=== PATIENT | female | born 1940 | race Caucasian/White ===

== ENCOUNTER 2019-11-03 21:40 | Inpatient (IN) ==
[2019-11-03] MEDS ORDERED: Ondansetron 4 MG/2 ML VIAL IVP ONE (22:05)
[2019-11-03] MEDS ORDERED: 0.9 % Sodium Chloride 500 ML IVC ONE (22:17)
[2019-11-03 22:38] LABS: Basophils # 0.1 K/mcL (0.0-0.2); Basophils % 0.2 %; Hematocrit 46.2 % (35.3-44.9); Immature Granulocytes % 0.7 % (0-4); Lymphocytes # 1.1 K/mcL (0.6-4.6); Lymphocytes % 5.2 %; Mean Corpuscular HGB Conc 32.5 g/dL (31.6-35.5); Mean Corpuscular Hemoglobin 30.8 pg (28.0-33.3); Mean Corpuscular Volume 94.9 fL (83.0-100.0); Mean Platelet Volume 9.7 fL (9.4-12.4); Monocytes # 1.2 K/mcL (0.0-1.3); Monocytes % 5.4 %; Neutrophils # 19.2 K/mcL (1.6-8.9); Platelet Count 267 K/mcL (140-400); Red Blood Count 4.87 M/mcL (3.82-4.97); Segmented Neutrophils % 88.5 %; White Blood Count 21.7 K/mcL (4.3-11.1)
[2019-11-03 22:46] LABS: Prothrombin Time 10.8 Seconds (9.4-12.1)
[2019-11-03 22:48] LABS: Activated Partial Thrombo Time 28.5 Seconds (26.0-36.0)
[2019-11-03 22:51] LABS: Bilirubin,Urine Small (Negative); Blood,Urine Negative (Negative); Clarity,Urine Clear (Clear); Color,Urine Yellow (Yellow); Glucose,Urine (UA) Normal (Normal); Ketones,Urine Negative (Negative); Leukocyte Esterase,Urine Small (Negative); Nitrite,Urine Negative (Negative); PH,Urine 5.5 pH Units (5.0-8.0); Protein,Urine Negative (Neg-Trace); Specific Gravity,Urine 1.021 (1.010-1.025); Urobilinogen,Urine Normal (Normal)
[2019-11-03 22:53] LABS: Bacteria,Urine None Seen per hpf (None-Few); Hyaline Casts,Urine None Seen per lpf (None-Few); RBC,Urine 0-3 per hpf (0-3); Squamous Epithelial Cell,Urine Many per lpf (None-Few); WBC,Urine 0-3 per hpf (0-3)
[2019-11-03 23:04] LABS: Albumin/Globulin Ratio 1.3 (1.1-2.2); Bilirubin,Direct 0.1 mg/dL (0.0-0.2); Bilirubin,Indirect 0.5 mg/dL (0.0-1.0); Bilirubin,Total 0.6 mg/dL (0.3-1.0); Calcium 9.1 mg/dL (8.6-10.3); Potassium 4.2 mEq/L (3.5-5.1)
[2019-11-03 23:06] LABS: Troponin I 0.18 ng/mL (< 0.04)
[2019-11-03] MEDS ORDERED: Isovue-370 500 ML BOTTLE IVP ONE (23:08)
[2019-11-04] MEDS ORDERED: MetroNIDAZOLE 500 MG/100 ML 500 MG/100 ML BAG IVPB ONE (02:27)
[2019-11-04] MEDS ORDERED: 0.9 % Sodium Chloride 1,000 ML IVC ONE (02:27)
[2019-11-04] MEDS ORDERED: Naloxone 0.4 MG/ML INJ IVP PRN (03:19)
[2019-11-04] MEDS: *HR* OxyCODONE Oral Soln 5 MG/5 ML UD.LIQ PO PRN ×3 (04:09→20:32)
[2019-11-04 04:20] LABS: Basophils # 0.1 K/mcL (0.0-0.2); Basophils % 0.2 %; Eosinophils # 0.1 K/mcL (0.0-0.6); Eosinophils % 0.2 %; Hematocrit 41.3 % (35.3-44.9); Hemoglobin 13.6 g/dL (11.5-15.4); Immature Granulocytes % 0.7 % (0-4); Lymphocytes % 13.7 %; Mean Corpuscular HGB Conc 32.9 g/dL (31.6-35.5); Mean Corpuscular Hemoglobin 31.6 pg (28.0-33.3); Mean Corpuscular Volume 95.8 fL (83.0-100.0); Mean Platelet Volume 10.3 fL (9.4-12.4); Monocytes # 2.3 K/mcL (0.0-1.3); Monocytes % 10.2 %; Neutrophils # 16.7 K/mcL (1.6-8.9); Platelet Count 246 K/mcL (140-400); Red Blood Count 4.31 M/mcL (3.82-4.97); White Blood Count 22.3 K/mcL (4.3-11.1)
[2019-11-04] MEDS: Ringers Solution, Lactated 1,000 ML IVC SCH ×2 (04:21→13:51)
[2019-11-04 04:36] LABS: Prothrombin Time 11.5 Seconds (9.4-12.1)
[2019-11-04 04:43] LABS: Albumin 3.6 g/dL (3.5-5.7); Albumin/Globulin Ratio 1.3 (1.1-2.2); Bilirubin,Total 0.8 mg/dL (0.3-1.0); Calcium 8.4 mg/dL (8.6-10.3); Globulin 2.7 g/dL (2.4-3.5); Magnesium 1.8 mg/dL (1.6-2.6); Potassium 3.9 mEq/L (3.5-5.1); Total Protein 6.3 g/dL (6.4-8.9)
[2019-11-04] MEDS: Loratadine 10 MG TABLET PO SCH (09:13)
[2019-11-04] MEDS: Piperacillin/Tazobactam 3.375 GM in 0.9 % Sodium Chloride Mini Bag 100 ML IVPB SCH ×2 (09:13→18:53)
[2019-11-04 14:22] LABS: Hematocrit 39.2 % (35.3-44.9); Hemoglobin 12.7 g/dL (11.5-15.4)
[2019-11-04] MEDS: Ondansetron 4 MG/2 ML VIAL IVP PRN (22:59)
[2019-11-05] MEDS: *HR* OxyCODONE Oral Soln 5 MG/5 ML UD.LIQ PO PRN ×4 (00:36→20:12)
[2019-11-05] MEDS: Piperacillin/Tazobactam 3.375 GM in 0.9 % Sodium Chloride Mini Bag 100 ML IVPB SCH ×3 (00:36→15:01)
[2019-11-05] MEDS ORDERED: Metoclopramide 10 MG/2 ML VIAL IVP ONE (02:19)
[2019-11-05 04:36] LABS: Basophils # 0.1 K/mcL (0.0-0.2); Basophils % 0.3 %; Eosinophils # 0.3 K/mcL (0.0-0.6); Eosinophils % 1.2 %; Hematocrit 37.9 % (35.3-44.9); Hemoglobin 12.5 g/dL (11.5-15.4); Immature Granulocytes % 0.7 % (0-4); Lymphocytes % 16.9 %; Mean Corpuscular Hemoglobin 31.3 pg (28.0-33.3); Mean Platelet Volume 10.4 fL (9.4-12.4); Monocytes # 2.4 K/mcL (0.0-1.3); Neutrophils # 16.8 K/mcL (1.6-8.9); Platelet Count 225 K/mcL (140-400); Red Blood Count 3.99 M/mcL (3.82-4.97); Red Cell Distribution Width 15.5 % (11.5-14.5); Segmented Neutrophils % 70.9 %; White Blood Count 23.7 K/mcL (4.3-11.1)
[2019-11-05 04:48] LABS: BUN/Creatinine Ratio 12 (6-26); Blood Urea Nitrogen 12 mg/dL (8-23); Calcium 8.6 mg/dL (8.6-10.3); Carbon Dioxide 27 mEq/L (23-29); Chloride 106 mEq/L (98-107); Glucose 107 mg/dL (70-105); Osmolality,Calculated 286 (280-300); Potassium 3.8 mEq/L (3.5-5.1); Sodium 138 mEq/L (136-145); eGFR For African Americans > 60 (> 60); eGFR For Non-African Americans 53 (> 60)
[2019-11-05] MEDS: Ondansetron 4 MG/2 ML VIAL IVP PRN ×2 (08:23→20:12)
[2019-11-05] MEDS: Loratadine 10 MG TABLET PO SCH (08:23)
[2019-11-05] MEDS ORDERED: Morphine Sulfate 2 MG/ML SYRINGE IVP PRN (16:53)
[2019-11-05] MEDS ORDERED: *HR* Metoprolol 5 MG/5 ML VIAL IVP ONE (17:21)
[2019-11-05] MEDS: *HR* Promethazine 25 MG/ML VIAL IVP PRN (17:28)
[2019-11-05] MEDS ORDERED: *HR* Metoprolol 5 MG/5 ML VIAL IVP PRN (17:44)
[2019-11-05] MEDS: Ringers Solution, Lactated 1,000 ML IVC SCH (18:36)
[2019-11-06 01:00] LABS: Basophils # 0.2 K/mcL (0.0-0.2); Basophils % 0.7 %; Eosinophils # 0.5 K/mcL (0.0-0.6); Eosinophils % 2.3 %; Hematocrit 36.9 % (35.3-44.9); Immature Granulocytes % 0.6 % (0-4); Lymphocytes # 3.6 K/mcL (0.6-4.6); Lymphocytes % 16.4 %; Mean Corpuscular HGB Conc 32.5 g/dL (31.6-35.5); Mean Corpuscular Hemoglobin 31.2 pg (28.0-33.3); Mean Corpuscular Volume 95.8 fL (83.0-100.0); Mean Platelet Volume 10.4 fL (9.4-12.4); Monocytes # 2.4 K/mcL (0.0-1.3); Monocytes % 10.9 %; Platelet Count 215 K/mcL (140-400); Red Blood Count 3.85 M/mcL (3.82-4.97); Red Cell Distribution Width 15.4 % (11.5-14.5); Segmented Neutrophils % 69.1 %; White Blood Count 21.7 K/mcL (4.3-11.1)
[2019-11-06 01:22] LABS: BUN/Creatinine Ratio 9 (6-26); Blood Urea Nitrogen 9 mg/dL (8-23); Calcium 8.4 mg/dL (8.6-10.3); Carbon Dioxide 26 mEq/L (23-29); Chloride 105 mEq/L (98-107); Glucose 95 mg/dL (70-105); Osmolality,Calculated 284 (280-300); Potassium 3.8 mEq/L (3.5-5.1); Sodium 138 mEq/L (136-145); eGFR For African Americans > 60 (> 60); eGFR For Non-African Americans 53 (> 60)
[2019-11-06] MEDS: Piperacillin/Tazobactam 3.375 GM in 0.9 % Sodium Chloride Mini Bag 100 ML IVPB SCH ×3 (05:00→20:43)
[2019-11-06] MEDS: Ringers Solution, Lactated 1,000 ML IVC SCH ×2 (05:24→17:55)
[2019-11-06] MEDS ORDERED: Isovue-370 500 ML BOTTLE IVP ONE (07:53)
[2019-11-06] MEDS: Loratadine 10 MG TABLET PO SCH (09:02)
[2019-11-06] MEDS ORDERED: Famotidine 20 MG/2 ML VIAL IVP ONE (09:10)
[2019-11-06] MEDS: *HR* OxyCODONE Oral Soln 5 MG/5 ML UD.LIQ PO PRN ×4 (09:27→21:01)
[2019-11-07 03:56] LABS: Basophils # 0.2 K/mcL (0.0-0.2); Basophils % 0.9 %; Eosinophils # 0.8 K/mcL (0.0-0.6); Eosinophils % 4.8 %; Hematocrit 35.7 % (35.3-44.9); Hemoglobin 11.4 g/dL (11.5-15.4); Immature Granulocytes % 0.4 % (0-4); Lymphocytes # 3.7 K/mcL (0.6-4.6); Lymphocytes % 21.3 %; Mean Corpuscular HGB Conc 31.9 g/dL (31.6-35.5); Mean Corpuscular Hemoglobin 30.7 pg (28.0-33.3); Mean Corpuscular Volume 96.2 fL (83.0-100.0); Mean Platelet Volume 10.4 fL (9.4-12.4); Monocytes % 11.8 %; Neutrophils # 10.4 K/mcL (1.6-8.9); Platelet Count 223 K/mcL (140-400); Red Blood Count 3.71 M/mcL (3.82-4.97); Red Cell Distribution Width 15.2 % (11.5-14.5); Segmented Neutrophils % 60.8 %; White Blood Count 17.2 K/mcL (4.3-11.1)
[2019-11-07 04:17] LABS: BUN/Creatinine Ratio 9 (6-26); Blood Urea Nitrogen 9 mg/dL (8-23); Calcium 8.5 mg/dL (8.6-10.3); Carbon Dioxide 25 mEq/L (23-29); Chloride 106 mEq/L (98-107); Glucose 76 mg/dL (70-105); Magnesium 1.7 mg/dL (1.6-2.6); Osmolality,Calculated 283 (280-300); Potassium 3.7 mEq/L (3.5-5.1); Sodium 138 mEq/L (136-145); eGFR For African Americans > 60 (> 60); eGFR For Non-African Americans 55 (> 60)
[2019-11-07] MEDS: Piperacillin/Tazobactam 3.375 GM in 0.9 % Sodium Chloride Mini Bag 100 ML IVPB SCH ×3 (05:11→21:10)
[2019-11-07] MEDS: *HR* Promethazine 25 MG/ML VIAL IVP PRN (05:25)
[2019-11-07] MEDS: Loratadine 10 MG TABLET PO SCH (07:23)
[2019-11-07] MEDS: Ringers Solution, Lactated 1,000 ML IVC SCH (07:23)
[2019-11-07] MEDS: *HR* OxyCODONE Oral Soln 5 MG/5 ML UD.LIQ PO PRN ×2 (07:26→21:28)
[2019-11-07] MEDS ORDERED: *HR* Labetalol 20 MG/4 ML SYRINGE IVP PRN (07:41)
[2019-11-07] MEDS ORDERED: *HR* Metoprolol 5 MG/5 ML VIAL IVP ONE (18:42)
[2019-11-07] MEDS ORDERED: *HR* Metoprolol 5 MG/5 ML VIAL IVP PRN (19:07)
[2019-11-08 01:32] LABS: Basophils # 0.1 K/mcL (0.0-0.2); Basophils % 0.7 %; Eosinophils # 0.4 K/mcL (0.0-0.6); Eosinophils % 2.5 %; Hematocrit 40.3 % (35.3-44.9); Immature Granulocytes % 0.5 % (0-4); Lymphocytes % 17.9 %; Mean Corpuscular HGB Conc 32.5 g/dL (31.6-35.5); Mean Corpuscular Hemoglobin 30.6 pg (28.0-33.3); Mean Corpuscular Volume 94.2 fL (83.0-100.0); Mean Platelet Volume 10.1 fL (9.4-12.4); Neutrophils # 11.2 K/mcL (1.6-8.9); Nucleated Red Blood Cells 0.1 /100 WBC (0); Platelet Count 277 K/mcL (140-400); Red Blood Count 4.28 M/mcL (3.82-4.97); Red Cell Distribution Width 14.8 % (11.5-14.5); Segmented Neutrophils % 66.4 %; White Blood Count 16.9 K/mcL (4.3-11.1)
[2019-11-08 01:36] LABS: Hemoglobin 13.1 g/dL (11.5-15.4)
[2019-11-08 01:51] LABS: BUN/Creatinine Ratio 8 (6-26); Blood Urea Nitrogen 7 mg/dL (8-23); Carbon Dioxide 27 mEq/L (23-29); Chloride 103 mEq/L (98-107); Glucose 119 mg/dL (70-105); Osmolality,Calculated 287 (280-300); Potassium 3.5 mEq/L (3.5-5.1); Sodium 139 mEq/L (136-145); eGFR For African Americans > 60 (> 60); eGFR For Non-African Americans 59 (> 60)
[2019-11-08] MEDS: Piperacillin/Tazobactam 3.375 GM in 0.9 % Sodium Chloride Mini Bag 100 ML IVPB SCH ×3 (05:08→20:00)
[2019-11-08] MEDS: *HR* OxyCODONE Oral Soln 5 MG/5 ML UD.LIQ PO PRN ×2 (07:41→20:00)
[2019-11-08] MEDS: Loratadine 10 MG TABLET PO SCH (07:41)
[2019-11-08] MEDS: Ringers Solution, Lactated 1,000 ML IVC SCH (10:57)
[2019-11-08] MEDS ORDERED: Mag Hydrox/Al Hydrox/Simeth 30 ML UDC PO PRN (15:09)
[2019-11-09] MEDS: Ringers Solution, Lactated 1,000 ML IVC SCH ×4 (00:22→14:18)
[2019-11-09] MEDS: Piperacillin/Tazobactam 3.375 GM in 0.9 % Sodium Chloride Mini Bag 100 ML IVPB SCH ×3 (04:16→20:37)
[2019-11-09 04:18] LABS: Hematocrit 37.4 % (35.3-44.9); Hemoglobin 12.2 g/dL (11.5-15.4); Mean Corpuscular HGB Conc 32.6 g/dL (31.6-35.5); Mean Corpuscular Hemoglobin 30.7 pg (28.0-33.3); Mean Corpuscular Volume 94.2 fL (83.0-100.0); Platelet Count 268 K/mcL (140-400); Red Blood Count 3.97 M/mcL (3.82-4.97); Red Cell Distribution Width 14.9 % (11.5-14.5)
[2019-11-09] MEDS: *HR* OxyCODONE Oral Soln 5 MG/5 ML UD.LIQ PO PRN ×2 (04:19→20:39)
[2019-11-09 04:36] LABS: BUN/Creatinine Ratio 7 (6-26); Blood Urea Nitrogen 6 mg/dL (8-23); Calcium 8.6 mg/dL (8.6-10.3); Carbon Dioxide 25 mEq/L (23-29); Chloride 106 mEq/L (98-107); Glucose 102 mg/dL (70-105); Osmolality,Calculated 286 (280-300); Potassium 3.6 mEq/L (3.5-5.1); Sodium 139 mEq/L (136-145); eGFR For African Americans > 60 (> 60); eGFR For Non-African Americans 59 (> 60)
[2019-11-09 04:37] LABS: Troponin I < 0.03 ng/mL (< 0.04)
[2019-11-09 04:50] LABS: Thyroid Stimulating Hormone 1.061 mcIU/mL (0.340-5.600)
[2019-11-09] MEDS ORDERED: *HR* Labetalol 20 MG/4 ML SYRINGE IVP ONE (07:33)
[2019-11-09] MEDS: Loratadine 10 MG TABLET PO SCH (08:51)
[2019-11-09] MEDS: polyethylene glycoL 3350 17 GM POWD.PACK PO SCH (09:03)
[2019-11-09] MEDS: Ondansetron 4 MG/2 ML VIAL IVP PRN (10:00)
[2019-11-09] MEDS ORDERED: Acetaminophen 325 MG TABLET PO PRN (11:17)
[2019-11-09] MEDS: *HR* Promethazine 25 MG/ML VIAL IVP PRN (11:27)
[2019-11-10 01:29] LABS: Basophils # 0.1 K/mcL (0.0-0.2); Basophils % 1.1 %; Eosinophils # 0.8 K/mcL (0.0-0.6); Eosinophils % 7.4 %; Hematocrit 36.8 % (35.3-44.9); Hemoglobin 11.9 g/dL (11.5-15.4); Immature Granulocytes % 0.7 % (0-4); Lymphocytes # 2.9 K/mcL (0.6-4.6); Lymphocytes % 28.8 %; Mean Corpuscular HGB Conc 32.3 g/dL (31.6-35.5); Mean Corpuscular Volume 95.8 fL (83.0-100.0); Mean Platelet Volume 10.2 fL (9.4-12.4); Monocytes # 2.3 K/mcL (0.0-1.3); Monocytes % 22.7 %; Nucleated Red Blood Cells 0.2 /100 WBC (0); Platelet Count 269 K/mcL (140-400); Red Blood Count 3.84 M/mcL (3.82-4.97); Red Cell Distribution Width 15.1 % (11.5-14.5); Segmented Neutrophils % 39.3 %; White Blood Count 10.2 K/mcL (4.3-11.1)
[2019-11-10 01:39] LABS: INR 1.1; Prothrombin Time 12.2 Seconds (9.4-12.1)
[2019-11-10 01:47] LABS: Platelet Estimate Normal (Normal)
[2019-11-10 01:49] LABS: BUN/Creatinine Ratio 7 (6-26); Blood Urea Nitrogen 7 mg/dL (8-23); Calcium 8.5 mg/dL (8.6-10.3); Carbon Dioxide 26 mEq/L (23-29); Chloride 108 mEq/L (98-107); Glucose 94 mg/dL (70-105); Magnesium 1.8 mg/dL (1.6-2.6); Osmolality,Calculated 290 (280-300); Phosphorous 3.3 mg/dL (2.7-4.5); Potassium 3.6 mEq/L (3.5-5.1); Sodium 141 mEq/L (136-145); eGFR For African Americans > 60 (> 60); eGFR For Non-African Americans 53 (> 60)
[2019-11-10] MEDS: Ringers Solution, Lactated 1,000 ML IVC SCH (04:26)
[2019-11-10] MEDS: Piperacillin/Tazobactam 3.375 GM in 0.9 % Sodium Chloride Mini Bag 100 ML IVPB SCH (05:12)
[2019-11-10] MEDS: Loratadine 10 MG TABLET PO SCH (09:09)
[2019-11-10] MEDS: polyethylene glycoL 3350 17 GM POWD.PACK PO SCH (09:10)
[2019-11-10 10:37] VITALS: BP 179/71
== END 2019-11-10 13:49 | disposition home or self-care (01) | DRG 391 ==
LOC: EMEROOARM 21:40 → 2ANU 21:40 → SUATTDRO 11-04 03:07 → 2ANU 11-04 03:24 → SUATTDRO 11-05 16:12
PROVIDERS: ADMIT Internal Medicine; ATTEND Internal Medicine

== ENCOUNTER 2019-11-20 08:35 | Inpatient (IN) ==
[2019-11-20] MEDS ORDERED: 0.9 % Sodium Chloride 500 ML IVC STA (09:12)
[2019-11-20 09:25] LABS: Basophils # 0.1 K/mcL (0.0-0.2); Basophils % 0.5 %; Eosinophils # 0.1 K/mcL (0.0-0.6); Eosinophils % 0.5 %; Hematocrit 47.2 % (35.3-44.9); Hemoglobin 15.4 g/dL (11.5-15.4); Immature Granulocytes % 0.8 % (0-4); Lymphocytes # 3.5 K/mcL (0.6-4.6); Lymphocytes % 18.4 %; Mean Corpuscular HGB Conc 32.6 g/dL (31.6-35.5); Mean Corpuscular Hemoglobin 30.7 pg (28.0-33.3); Mean Corpuscular Volume 94.2 fL (83.0-100.0); Mean Platelet Volume 10.5 fL (9.4-12.4); Monocytes # 1.4 K/mcL (0.0-1.3); Monocytes % 7.3 %; Neutrophils # 13.6 K/mcL (1.6-8.9); Platelet Count 499 K/mcL (140-400); Red Blood Count 5.01 M/mcL (3.82-4.97); Red Cell Distribution Width 16.2 % (11.5-14.5); Segmented Neutrophils % 72.5 %; White Blood Count 18.7 K/mcL (4.3-11.1)
[2019-11-20 09:42] LABS: INR 1.3; Prothrombin Time 14.7 Seconds (9.4-12.1)
[2019-11-20 09:44] LABS: Activated Partial Thrombo Time 34.7 Seconds (26.0-36.0)
[2019-11-20] MEDS ORDERED: Isovue-370 500 ML BOTTLE IVP ONE (10:05)
[2019-11-20 10:13] LABS: Albumin 3.8 g/dL (3.5-5.7); Albumin/Globulin Ratio 1.4 (1.1-2.2); Bilirubin,Total 0.7 mg/dL (0.3-1.0); Calcium 9.5 mg/dL (8.6-10.3); Globulin 2.8 g/dL (2.4-3.5); Potassium 3.1 mEq/L (3.5-5.1); Total Protein 6.6 g/dL (6.4-8.9)
[2019-11-20 10:31] LABS: Bilirubin,Urine Negative (Negative); Blood,Urine Negative (Negative); Clarity,Urine Clear (Clear); Color,Urine Yellow (Yellow); Glucose,Urine (UA) Normal (Normal); Ketones,Urine Negative (Negative); Leukocyte Esterase,Urine Small (Negative); Nitrite,Urine Negative (Negative); PH,Urine 6.5 pH Units (5.0-8.0); Protein,Urine Negative (Neg-Trace); Specific Gravity,Urine 1.018 (1.010-1.025); Urobilinogen,Urine Normal (Normal)
[2019-11-20 10:34] LABS: Bacteria,Urine None Seen per hpf (None-Few); Hyaline Casts,Urine None Seen per lpf (None-Few); RBC,Urine 0-3 per hpf (0-3); Squamous Epithelial Cell,Urine Many per lpf (None-Few)
[2019-11-20] MEDS ORDERED: methylPREDNISolone 125 MG/2 ML VIAL IVP STA (10:38)
[2019-11-20] MEDS ORDERED: Piperacillin/Tazobactam 3.375 GM in 0.9 % Sodium Chloride Mini Bag 100 ML IVPB STA (10:41)
[2019-11-20] MEDS ORDERED: 0.9 % Sodium Chloride 1,000 ML IVC ONE (12:26)
[2019-11-20] MEDS ORDERED: Ondansetron ODT 4 MG TAB.RAPDIS SL PRN (14:19)
[2019-11-20] MEDS ORDERED: Acetaminophen 325 MG TABLET PO PRN (14:19)
[2019-11-20] MEDS ORDERED: Naloxone 0.4 MG/ML INJ IVP PRN (14:19)
[2019-11-20] MEDS ORDERED: MetroNIDAZOLE 500 MG/100 ML 500 MG/100 ML BAG IVPB SCH (18:00)
[2019-11-20] MEDS ORDERED: Apixaban 5 MG TABLET PO SCH (21:00)
[2019-11-20] MEDS ORDERED: Melatonin 3 MG TABLET PO ONE (21:49)
[2019-11-20] MEDS ORDERED: *HR* OxyCODONE Immed Rel 5 MG TABLET PO ONE (21:49)
[2019-11-20] MEDS ORDERED: Famotidine 20 MG/2 ML VIAL IVP ONE (21:50)
[2019-11-20] MEDS ORDERED: *HR* Heparin 5,000 UNIT/ML VIAL SQ SCH (22:00)
[2019-11-20] MEDS: MetroNIDAZOLE 500 MG/100 ML 500 MG/100 ML BAG IVPB SCH ×2 (23:09→23:10)
[2019-11-21] MEDS: MetroNIDAZOLE 500 MG/100 ML 500 MG/100 ML BAG IVPB SCH ×4 (03:08→23:47)
[2019-11-21 05:08] LABS: Basophils # 0.1 K/mcL (0.0-0.2); Basophils % 0.5 %; Eosinophils % 0.1 %; Hematocrit 38.3 % (35.3-44.9); Lymphocytes # 2.3 K/mcL (0.6-4.6); Lymphocytes % 13.6 %; Mean Corpuscular HGB Conc 32.4 g/dL (31.6-35.5); Mean Corpuscular Hemoglobin 30.4 pg (28.0-33.3); Mean Corpuscular Volume 93.9 fL (83.0-100.0); Mean Platelet Volume 10.1 fL (9.4-12.4); Monocytes # 0.9 K/mcL (0.0-1.3); Monocytes % 5.2 %; Neutrophils # 13.5 K/mcL (1.6-8.9); Platelet Count 415 K/mcL (140-400); Red Blood Count 4.08 M/mcL (3.82-4.97); Segmented Neutrophils % 79.6 %
[2019-11-21 05:10] LABS: Hemoglobin 12.4 g/dL (11.5-15.4)
[2019-11-21 05:30] LABS: Calcium 8.7 mg/dL (8.6-10.3); Magnesium 1.7 mg/dL (1.6-2.6); Potassium 3.4 mEq/L (3.5-5.1)
[2019-11-21] MEDS: lisinopriL 10 MG TABLET PO SCH (09:04)
[2019-11-21] MEDS: amLODIPine 5 MG TABLET PO SCH (09:04)
[2019-11-22] MEDS ORDERED: Morphine Sulfate 2 MG/ML SYRINGE IVP ONE (03:38)
[2019-11-22 05:11] LABS: Basophils # 0.1 K/mcL (0.0-0.2); Basophils % 0.7 %; Eosinophils # 0.5 K/mcL (0.0-0.6); Eosinophils % 2.9 %; Hematocrit 36.2 % (35.3-44.9); Hemoglobin 11.9 g/dL (11.5-15.4); Immature Granulocytes % 0.4 % (0-4); Lymphocytes # 3.2 K/mcL (0.6-4.6); Lymphocytes % 19.7 %; Mean Corpuscular HGB Conc 32.9 g/dL (31.6-35.5); Mean Corpuscular Hemoglobin 31.2 pg (28.0-33.3); Mean Corpuscular Volume 94.8 fL (83.0-100.0); Monocytes # 2.2 K/mcL (0.0-1.3); Monocytes % 13.4 %; Neutrophils # 10.1 K/mcL (1.6-8.9); Platelet Count 398 K/mcL (140-400); Red Blood Count 3.82 M/mcL (3.82-4.97); Red Cell Distribution Width 16.1 % (11.5-14.5); Segmented Neutrophils % 62.9 %; White Blood Count 16.1 K/mcL (4.3-11.1)
[2019-11-22] MEDS ORDERED: *HR* Promethazine 25 MG/ML VIAL IVP ONE (05:20)
[2019-11-22 05:29] LABS: BUN/Creatinine Ratio 14 (6-26); Blood Urea Nitrogen 12 mg/dL (8-23); Calcium 8.8 mg/dL (8.6-10.3); Carbon Dioxide 23 mEq/L (23-29); Chloride 110 mEq/L (98-107); Glucose 104 mg/dL (70-105); Osmolality,Calculated 292 (280-300); Potassium 2.9 mEq/L (3.5-5.1); Sodium 141 mEq/L (136-145); eGFR For African Americans > 60 (> 60); eGFR For Non-African Americans > 60 (> 60)
[2019-11-22] MEDS: amLODIPine 5 MG TABLET PO SCH (07:41)
[2019-11-22] MEDS: lisinopriL 10 MG TABLET PO SCH (07:41)
[2019-11-22] MEDS: MetroNIDAZOLE 500 MG/100 ML 500 MG/100 ML BAG IVPB SCH (07:41)
[2019-11-22] MEDS ORDERED: *HR* Rocuronium Bromide 50 MG/5 ML VIAL ONE (08:07)
[2019-11-22] MEDS ORDERED: *HR* Succinylcholine 200 MG/10 ML VIAL IVP ONE (08:07)
[2019-11-22] MEDS ORDERED: Lidocaine -MPF 2% 2 ML VIAL ONE (08:07)
[2019-11-22] MEDS ORDERED: Dexamethasone 4 MG/ML VIAL ONE (08:07)
[2019-11-22] MEDS ORDERED: Ondansetron 4 MG/2 ML VIAL ONE (08:07)
[2019-11-22] MEDS ORDERED: *HR* Propofol 200 MG/20 ML VIAL IVP ONE (08:12)
[2019-11-22] MEDS ORDERED: *HR* FentaNYL (PF) 100 MCG/2 ML VIAL ONE (08:12)
[2019-11-22] MEDS ORDERED: Loratadine 10 MG TABLET PO SCH (09:00)
[2019-11-22] MEDS ORDERED: hydroCHLOROthiazide 25 MG TABLET PO SCH (09:00)
[2019-11-22] MEDS ORDERED: Ondansetron 4 MG/2 ML VIAL IVP ONE (09:19)
[2019-11-22] MEDS ORDERED: *HR* OxyCODONE Immed Rel 5 MG TABLET PO PRN (09:19)
[2019-11-22] MEDS ORDERED: *HR* HYDROmorphone PF 0.5 MG/0.5 ML SYRINGE IVP PRN (09:19)
[2019-11-22] MEDS ORDERED: ceFAZolin 2,000 MG in Water for inj. (sterile) 20 ML IVP ONE (09:40)
[2019-11-22] MEDS ORDERED: *HR* PHENYLEPHRINE 1,000 MCG/10 ML SYRINGE IVP ONE (09:43)
[2019-11-22] MEDS ORDERED: EPHEDrine 50 MG/ML VIAL ONE (09:43)
[2019-11-22] MEDS ORDERED: *HR* HYDROMORPHONE 2 MG/ML VIAL ONE (10:08)
[2019-11-22] MEDS ORDERED: Naloxone 0.4 MG/ML INJ IVP PRN (14:27)
[2019-11-22] MEDS ORDERED: Acetaminophen 325 MG TABLET PO PRN (14:27)
[2019-11-22] MEDS: *HR* OxyCODONE Immed Rel 5 MG TABLET PO PRN ×2 (16:23→23:46)
[2019-11-22] MEDS: *HR* HYDROmorphone PF 0.5 MG/0.5 ML SYRINGE IVP PRN (20:37)
[2019-11-22] MEDS ORDERED: Apixaban 5 MG TABLET PO SCH (21:00)
[2019-11-23 03:48] LABS: Basophils % 0.1 %; Hematocrit 37.5 % (35.3-44.9); Hemoglobin 12.7 g/dL (11.5-15.4); Immature Granulocytes % 0.6 % (0-4); Lymphocytes % 8.5 %; Mean Corpuscular HGB Conc 33.9 g/dL (31.6-35.5); Mean Corpuscular Hemoglobin 31.8 pg (28.0-33.3); Mean Platelet Volume 10.6 fL (9.4-12.4); Monocytes # 2.3 K/mcL (0.0-1.3); Monocytes % 9.8 %; Neutrophils # 19.1 K/mcL (1.6-8.9); Platelet Count 350 K/mcL (140-400); Red Blood Count 3.99 M/mcL (3.82-4.97); Red Cell Distribution Width 16.2 % (11.5-14.5); White Blood Count 23.5 K/mcL (4.3-11.1)
[2019-11-23] MEDS ORDERED: D5% in 0.9% NACL w KCl 20 MEQ/1,000 ML MLS IVC SCH (08:45)
[2019-11-23] MEDS: amLODIPine 5 MG TABLET PO SCH (08:47)
[2019-11-23] MEDS: Loratadine 10 MG TABLET PO SCH (08:48)
[2019-11-23] MEDS: lisinopriL 10 MG TABLET PO SCH (08:48)
[2019-11-23] MEDS: MetroNIDAZOLE 500 MG/100 ML 500 MG/100 ML BAG IVPB SCH ×2 (08:48→15:56)
[2019-11-23] MEDS: *HR* OxyCODONE Immed Rel 5 MG TABLET PO PRN (08:56)
[2019-11-23] MEDS ORDERED: hydroCHLOROthiazide 25 MG TABLET PO SCH (09:00)
[2019-11-23 09:10] LABS: BUN/Creatinine Ratio 15 (6-26); Blood Urea Nitrogen 15 mg/dL (8-23); Calcium 8.5 mg/dL (8.6-10.3); Carbon Dioxide 25 mEq/L (23-29); Chloride 105 mEq/L (98-107); Glucose 116 mg/dL (70-105); Osmolality,Calculated 282 (280-300); Phosphorous 3.3 mg/dL (2.7-4.5); Potassium 4.3 mEq/L (3.5-5.1); Sodium 135 mEq/L (136-145); eGFR For African Americans > 60 (> 60); eGFR For Non-African Americans 54 (> 60)
[2019-11-23] MEDS: Ondansetron ODT 4 MG TAB.RAPDIS SL PRN ×2 (10:12→20:56)
[2019-11-23] MEDS: *HR* HYDROmorphone PF 0.5 MG/0.5 ML SYRINGE IVP PRN ×3 (10:18→21:41)
[2019-11-24] MEDS: MetroNIDAZOLE 500 MG/100 ML 500 MG/100 ML BAG IVPB SCH (00:12)
[2019-11-24] MEDS: *HR* OxyCODONE Immed Rel 5 MG TABLET PO PRN ×2 (00:19→20:52)
[2019-11-24 05:37] LABS: Red Cell Distribution Width 16.4 % (11.5-14.5)
[2019-11-24 05:38] LABS: Hematocrit 37.9 % (35.3-44.9); Hemoglobin 12.2 g/dL (11.5-15.4); Mean Corpuscular HGB Conc 32.2 g/dL (31.6-35.5); Mean Corpuscular Hemoglobin 30.6 pg (28.0-33.3); Mean Platelet Volume 10.7 fL (9.4-12.4); Platelet Count 321 K/mcL (140-400); Red Blood Count 3.99 M/mcL (3.82-4.97); White Blood Count 24.2 K/mcL (4.3-11.1)
[2019-11-24] MEDS: *HR* HYDROmorphone PF 0.5 MG/0.5 ML SYRINGE IVP PRN ×2 (05:45→16:53)
[2019-11-24 05:58] LABS: BUN/Creatinine Ratio 13 (6-26); Blood Urea Nitrogen 12 mg/dL (8-23); Calcium 8.6 mg/dL (8.6-10.3); Carbon Dioxide 24 mEq/L (23-29); Chloride 104 mEq/L (98-107); Glucose 147 mg/dL (70-105); Magnesium 1.8 mg/dL (1.6-2.6); Osmolality,Calculated 280 (280-300); Potassium 3.8 mEq/L (3.5-5.1); Sodium 134 mEq/L (136-145); eGFR For African Americans > 60 (> 60); eGFR For Non-African Americans 58 (> 60)
[2019-11-24] MEDS: lisinopriL 10 MG TABLET PO SCH (08:29)
[2019-11-24] MEDS: Piperacillin/Tazobactam 3.375 GM in 0.9 % Sodium Chloride Mini Bag 100 ML IVPB SCH ×3 (08:29→23:39)
[2019-11-24] MEDS: amLODIPine 5 MG TABLET PO SCH (08:29)
[2019-11-24] MEDS: Loratadine 10 MG TABLET PO SCH (08:29)
[2019-11-24] MEDS ORDERED: *HR* HYDROmorphone 20 MG/20 ML PCA IVC PRN (09:24)
[2019-11-24] MEDS: Ondansetron ODT 4 MG TAB.RAPDIS SL PRN (10:42)
[2019-11-24] MEDS ORDERED: Acetaminophen 325 MG TABLET PO PRN ×2 (15:45→15:56)
[2019-11-24] MEDS ORDERED: *HR* HYDROmorphone 2 MG/ML SYRINGE IVP PRN (15:48)
[2019-11-24] MEDS: Apixaban 5 MG TABLET PO SCH (20:52)
[2019-11-24] MEDS: Melatonin 3 MG TABLET PO SCH (20:52)
[2019-11-25] MEDS: amLODIPine 5 MG TABLET PO SCH (07:39)
[2019-11-25] MEDS: Piperacillin/Tazobactam 3.375 GM in 0.9 % Sodium Chloride Mini Bag 100 ML IVPB SCH ×3 (07:39→23:08)
[2019-11-25] MEDS: *HR* OxyCODONE Immed Rel 5 MG TABLET PO PRN ×3 (07:39→19:33)
[2019-11-25] MEDS: lisinopriL 10 MG TABLET PO SCH (07:39)
[2019-11-25] MEDS: Loratadine 10 MG TABLET PO SCH (07:40)
[2019-11-25] MEDS: Apixaban 5 MG TABLET PO SCH ×2 (07:40→19:29)
[2019-11-25 09:09] LABS: White Blood Count 23.8 K/mcL (4.3-11.1)
[2019-11-25 09:10] LABS: Basophils # 0.1 K/mcL (0.0-0.2); Basophils % 0.5 %; Eosinophils # 0.4 K/mcL (0.0-0.6); Eosinophils % 1.5 %; Hematocrit 39.9 % (35.3-44.9); Hemoglobin 12.8 g/dL (11.5-15.4); Immature Granulocytes % 0.7 % (0-4); Lymphocytes % 8.4 %; Mean Corpuscular HGB Conc 32.1 g/dL (31.6-35.5); Mean Corpuscular Hemoglobin 30.4 pg (28.0-33.3); Mean Corpuscular Volume 94.8 fL (83.0-100.0); Mean Platelet Volume 10.2 fL (9.4-12.4); Monocytes # 1.9 K/mcL (0.0-1.3); Neutrophils # 19.3 K/mcL (1.6-8.9); Platelet Count 326 K/mcL (140-400); Red Blood Count 4.21 M/mcL (3.82-4.97); Red Cell Distribution Width 16.4 % (11.5-14.5); Segmented Neutrophils % 80.9 %
[2019-11-25 09:19] LABS: BUN/Creatinine Ratio 13 (6-26); Blood Urea Nitrogen 12 mg/dL (8-23); Carbon Dioxide 26 mEq/L (23-29); Chloride 104 mEq/L (98-107); Glucose 140 mg/dL (70-105); Magnesium 1.8 mg/dL (1.6-2.6); Osmolality,Calculated 286 (280-300); Phosphorous 2.5 mg/dL (2.7-4.5); Potassium 3.3 mEq/L (3.5-5.1); Sodium 137 mEq/L (136-145); eGFR For African Americans > 60 (> 60); eGFR For Non-African Americans 57 (> 60)
[2019-11-25] MEDS: Acetaminophen IV 1,000 MG/100 ML INFUS..BTL IVPB SCH ×3 (11:24→23:06)
[2019-11-25] MEDS: Melatonin 3 MG TABLET PO SCH (19:29)
[2019-11-26] MEDS: *HR* OxyCODONE Immed Rel 5 MG TABLET PO PRN ×3 (01:33→19:30)
[2019-11-26] MEDS: *HR* HYDROmorphone PF 0.5 MG/0.5 ML SYRINGE IVP PRN ×3 (03:38→21:33)
[2019-11-26] MEDS: Acetaminophen IV 1,000 MG/100 ML INFUS..BTL IVPB SCH ×4 (05:12→23:39)
[2019-11-26 07:30] LABS: Hematocrit 38.5 % (35.3-44.9); Hemoglobin 12.3 g/dL (11.5-15.4); Mean Corpuscular HGB Conc 31.9 g/dL (31.6-35.5); Mean Corpuscular Hemoglobin 30.9 pg (28.0-33.3); Mean Corpuscular Volume 96.7 fL (83.0-100.0); Mean Platelet Volume 10.3 fL (9.4-12.4); Platelet Count 340 K/mcL (140-400); Red Blood Count 3.98 M/mcL (3.82-4.97); Red Cell Distribution Width 16.4 % (11.5-14.5); White Blood Count 21.9 K/mcL (4.3-11.1)
[2019-11-26 07:40] LABS: BUN/Creatinine Ratio 15 (6-26); Blood Urea Nitrogen 15 mg/dL (8-23); Calcium 8.6 mg/dL (8.6-10.3); Carbon Dioxide 29 mEq/L (23-29); Chloride 103 mEq/L (98-107); Glucose 108 mg/dL (70-105); Magnesium 1.7 mg/dL (1.6-2.6); Osmolality,Calculated 283 (280-300); Potassium 3.3 mEq/L (3.5-5.1); Sodium 136 mEq/L (136-145); eGFR For African Americans > 60 (> 60); eGFR For Non-African Americans 54 (> 60)
[2019-11-26] MEDS: Ondansetron ODT 4 MG TAB.RAPDIS SL PRN (09:55)
[2019-11-26] MEDS: Apixaban 5 MG TABLET PO SCH ×2 (09:56→19:30)
[2019-11-26] MEDS: amLODIPine 5 MG TABLET PO SCH (09:57)
[2019-11-26] MEDS: Piperacillin/Tazobactam 3.375 GM in 0.9 % Sodium Chloride Mini Bag 100 ML IVPB SCH ×3 (09:57→23:37)
[2019-11-26] MEDS: Loratadine 10 MG TABLET PO SCH (09:57)
[2019-11-26] MEDS: lisinopriL 10 MG TABLET PO SCH (09:57)
[2019-11-26] MEDS: *HR* Promethazine 25 MG/ML VIAL IVP PRN ×2 (15:34→23:34)
[2019-11-26] MEDS: Melatonin 3 MG TABLET PO SCH (19:30)
[2019-11-26] MEDS: Lactobacillus 1 EACH CAP.SPRINK PO SCH (22:30)
[2019-11-27] MEDS: *HR* OxyCODONE Immed Rel 5 MG TABLET PO PRN ×2 (05:25→17:56)
[2019-11-27] MEDS: *HR* HYDROmorphone PF 0.5 MG/0.5 ML SYRINGE IVP PRN ×2 (06:07→21:14)
[2019-11-27] MEDS: Acetaminophen IV 1,000 MG/100 ML INFUS..BTL IVPB SCH ×2 (06:08→12:56)
[2019-11-27 06:47] LABS: Basophils # 0.2 K/mcL (0.0-0.2); Basophils % 0.9 %; Eosinophils # 1.1 K/mcL (0.0-0.6); Eosinophils % 6.2 %; Hematocrit 40.1 % (35.3-44.9); Hemoglobin 12.9 g/dL (11.5-15.4); Immature Granulocytes % 0.4 % (0-4); Lymphocytes # 3.3 K/mcL (0.6-4.6); Mean Corpuscular HGB Conc 32.2 g/dL (31.6-35.5); Mean Corpuscular Hemoglobin 31.2 pg (28.0-33.3); Mean Corpuscular Volume 97.1 fL (83.0-100.0); Mean Platelet Volume 10.3 fL (9.4-12.4); Monocytes # 1.6 K/mcL (0.0-1.3); Monocytes % 9.1 %; Neutrophils # 11.1 K/mcL (1.6-8.9); Platelet Count 336 K/mcL (140-400); Red Blood Count 4.13 M/mcL (3.82-4.97); Red Cell Distribution Width 16.3 % (11.5-14.5); Segmented Neutrophils % 64.4 %; White Blood Count 17.3 K/mcL (4.3-11.1)
[2019-11-27 07:06] LABS: BUN/Creatinine Ratio 13 (6-26); Blood Urea Nitrogen 12 mg/dL (8-23); Calcium 8.2 mg/dL (8.6-10.3); Carbon Dioxide 24 mEq/L (23-29); Chloride 107 mEq/L (98-107); Glucose 87 mg/dL (70-105); Osmolality,Calculated 289 (280-300); Potassium 3.3 mEq/L (3.5-5.1); Sodium 140 mEq/L (136-145); eGFR For African Americans > 60 (> 60); eGFR For Non-African Americans > 60 (> 60)
[2019-11-27] MEDS: Apixaban 5 MG TABLET PO SCH ×2 (07:32→21:14)
[2019-11-27] MEDS: amLODIPine 5 MG TABLET PO SCH (07:32)
[2019-11-27] MEDS: Lactobacillus 1 EACH CAP.SPRINK PO SCH ×2 (07:32→21:13)
[2019-11-27] MEDS: Loratadine 10 MG TABLET PO SCH (07:32)
[2019-11-27] MEDS: Piperacillin/Tazobactam 3.375 GM in 0.9 % Sodium Chloride Mini Bag 100 ML IVPB SCH ×3 (07:32→23:50)
[2019-11-27] MEDS: lisinopriL 10 MG TABLET PO SCH (07:32)
[2019-11-27] MEDS ORDERED: Potassium Chloride Elixir 20 MEQ/15 ML UDC PO ONE (07:34)
[2019-11-27 09:29] LABS: Magnesium 1.6 mg/dL (1.6-2.6); Phosphorous 2.5 mg/dL (2.7-4.5)
[2019-11-27] MEDS: *HR* Promethazine 25 MG/ML VIAL IVP PRN (15:12)
[2019-11-27] MEDS: Melatonin 3 MG TABLET PO SCH (21:14)
[2019-11-28 02:05] LABS: Hematocrit 34.5 % (35.3-44.9); Hemoglobin 11.4 g/dL (11.5-15.4); Mean Corpuscular Hemoglobin 32.2 pg (28.0-33.3); Mean Corpuscular Volume 97.5 fL (83.0-100.0); Mean Platelet Volume 10.5 fL (9.4-12.4); Platelet Count 317 K/mcL (140-400); Red Blood Count 3.54 M/mcL (3.82-4.97); Red Cell Distribution Width 16.3 % (11.5-14.5); White Blood Count 16.3 K/mcL (4.3-11.1)
[2019-11-28 02:28] LABS: BUN/Creatinine Ratio 15 (6-26); Blood Urea Nitrogen 14 mg/dL (8-23); Calcium 8.1 mg/dL (8.6-10.3); Carbon Dioxide 22 mEq/L (23-29); Chloride 107 mEq/L (98-107); Glucose 93 mg/dL (70-105); Magnesium 1.5 mg/dL (1.6-2.6); Osmolality,Calculated 286 (280-300); Potassium 3.6 mEq/L (3.5-5.1); Sodium 138 mEq/L (136-145); eGFR For African Americans > 60 (> 60); eGFR For Non-African Americans 58 (> 60)
[2019-11-28] MEDS: Loratadine 10 MG TABLET PO SCH (07:30)
[2019-11-28] MEDS: Apixaban 5 MG TABLET PO SCH ×2 (07:30→20:25)
[2019-11-28] MEDS: Lactobacillus 1 EACH CAP.SPRINK PO SCH ×2 (07:30→20:24)
[2019-11-28] MEDS: lisinopriL 10 MG TABLET PO SCH (07:31)
[2019-11-28] MEDS: Piperacillin/Tazobactam 3.375 GM in 0.9 % Sodium Chloride Mini Bag 100 ML IVPB SCH ×3 (07:31→23:50)
[2019-11-28] MEDS: amLODIPine 5 MG TABLET PO SCH (07:31)
[2019-11-28] MEDS: *HR* OxyCODONE Immed Rel 5 MG TABLET PO PRN ×2 (11:07→20:25)
[2019-11-28] MEDS: Acetaminophen 325 MG TABLET PO PRN (16:07)
[2019-11-28] MEDS: Melatonin 3 MG TABLET PO SCH (20:25)
[2019-11-28] MEDS: *HR* HYDROmorphone PF 0.5 MG/0.5 ML SYRINGE IVP PRN (21:47)
[2019-11-29] MEDS: *HR* HYDROmorphone PF 0.5 MG/0.5 ML SYRINGE IVP PRN (03:43)
[2019-11-29 07:01] LABS: Hematocrit 36.1 % (35.3-44.9); Hemoglobin 11.9 g/dL (11.5-15.4); Mean Corpuscular Hemoglobin 31.8 pg (28.0-33.3); Mean Corpuscular Volume 96.5 fL (83.0-100.0); Mean Platelet Volume 9.9 fL (9.4-12.4); Platelet Count 324 K/mcL (140-400); Red Blood Count 3.74 M/mcL (3.82-4.97); Red Cell Distribution Width 16.5 % (11.5-14.5); White Blood Count 13.8 K/mcL (4.3-11.1)
[2019-11-29] MEDS: Piperacillin/Tazobactam 3.375 GM in 0.9 % Sodium Chloride Mini Bag 100 ML IVPB SCH (08:01)
[2019-11-29] MEDS: Loratadine 10 MG TABLET PO SCH (08:02)
[2019-11-29] MEDS: Ondansetron ODT 4 MG TAB.RAPDIS SL PRN (08:02)
[2019-11-29] MEDS: Acetaminophen 325 MG TABLET PO PRN (08:02)
[2019-11-29] MEDS: amLODIPine 5 MG TABLET PO SCH (08:02)
[2019-11-29] MEDS: lisinopriL 10 MG TABLET PO SCH (08:03)
[2019-11-29] MEDS: Lactobacillus 1 EACH CAP.SPRINK PO SCH (08:03)
[2019-11-29] MEDS: Apixaban 5 MG TABLET PO SCH (08:03)
[2019-11-29 10:58] VITALS: BP 124/72
== END 2019-11-29 12:30 | disposition home health service (06) | DRG 330 ==
LOC: EMEROOARM 08:35 → 3ANU 08:35 → SUATTDRO 14:05 → 3ANU 14:43 → SUATTDRO 11-21 18:37
PROVIDERS: ADMIT Internal Medicine; ATTEND Internal Medicine

== ENCOUNTER 2021-02-08 09:37 | Inpatient (IN) ==
[2021-02-08] MEDS ORDERED: Isovue-370 500 ML BOTTLE IVP ONE (09:59)
[2021-02-08] MEDS: Aspirin 81 MG TAB.CHEW PO SCH (10:09)
[2021-02-08 10:14] LABS: Immature Granulocytes % 0.8 % (0-4); Mean Platelet Volume 10.2 fL (9.4-12.4)
[2021-02-08 10:16] LABS: Basophils # 0.2 K/mcL (0.0-0.2); Basophils % 0.4 %; Hematocrit 36.2 % (35.3-44.9); Hemoglobin 12.1 g/dL (11.5-15.4); Lymphocytes # 4.3 K/mcL (0.6-4.6); Lymphocytes % 11.8 %; Mean Corpuscular HGB Conc 33.4 g/dL (31.6-35.5); Mean Corpuscular Hemoglobin 30.3 pg (28.0-33.3); Mean Corpuscular Volume 90.7 fL (83.0-100.0); Monocytes # 2.1 K/mcL (0.0-1.3); Monocytes % 5.7 %; Neutrophils # 29.8 K/mcL (1.6-8.9); Platelet Count 270 K/mcL (140-400); Red Blood Count 3.99 M/mcL (3.82-4.97); Segmented Neutrophils % 81.3 %
[2021-02-08 10:17] LABS: White Blood Count 36.6 K/mcL (4.3-11.1)
[2021-02-08 10:21] LABS: INR 1.9; Prothrombin Time 21.5 Seconds (9.4-12.1)
[2021-02-08 10:29] LABS: Platelet Estimate Normal (Normal)
[2021-02-08 10:37] LABS: Albumin 3.5 g/dL (3.5-5.7); Albumin/Globulin Ratio 1.2 (1.1-2.2); Bilirubin,Direct 0.2 mg/dL (0.0-0.2); Bilirubin,Indirect 0.5 mg/dL (0.0-1.0); Bilirubin,Total 0.7 mg/dL (0.3-1.0); Calcium 9.7 mg/dL (8.6-10.3); Magnesium 1.4 mg/dL (1.6-2.6); Phosphorous 3.3 mg/dL (2.7-4.5); Potassium 3.9 mEq/L (3.5-5.1); Total Protein 6.5 g/dL (6.4-8.9)
[2021-02-08 10:47] LABS: Troponin I 0.06 ng/mL (< 0.04)
[2021-02-08 10:55] LABS: Bacteria,Urine Few per hpf (None-Few); Bilirubin,Urine Negative (Negative); Blood,Urine Trace (Negative); Clarity,Urine Turbid (Clear); Color,Urine Light-Yellow (Yellow); Glucose,Urine (UA) Normal (Normal); Hyaline Casts,Urine Few per lpf (None Seen); Ketones,Urine Negative (Negative); Leukocyte Esterase,Urine Large (Negative); Mucus,Urine Few per lpf (None-Few); Nitrite,Urine Negative (Negative); PH,Urine 5.5 pH Units (5.0-8.0); Protein,Urine Negative (Neg-Trace); Renal Epithelial Cells,Urine Few per hpf (None-Few); Specific Gravity,Urine 1.015 (1.010-1.025); Squamous Epithelial Cell,Urine Few per hpf (None-Few); Transitional Epi Cells,Urine Few per hpf (None-Few); Urobilinogen,Urine Normal (Normal); WBC,Urine 15-30 per hpf (0-3)
[2021-02-08] MEDS ORDERED: cefTRIAXone 1,000 MG in Water for inj. (sterile) 10 ML IVP ONE (11:03)
[2021-02-08] MEDS ORDERED: 0.9 % Sodium Chloride 500 ML IVC ONE ×2 (11:19→23:34)
[2021-02-08] MEDS ORDERED: 0.9 % Sodium Chloride 1,000 ML IVC ONE (12:48)
[2021-02-08] MEDS ORDERED: *HR* Heparin 5,000 UNIT/ML VIAL IVP PRN ×2 (12:51)
[2021-02-08] MEDS ORDERED: *HR* Heparin 5,000 UNIT/ML VIAL IVP ONE (12:51)
[2021-02-08] MEDS ORDERED: Heparin 25,000UNIT/250ML 1/2NS 25,000 UNIT/250 ML IV.SOLN IVC SCH ×2 (13:00)
[2021-02-08 13:48] LABS: Troponin I 0.05 ng/mL (< 0.04)
[2021-02-08] MEDS ORDERED: Naloxone 0.4 MG/ML INJ IVP PRN (13:55)
[2021-02-08] MEDS ORDERED: Ondansetron 4 MG/2 ML VIAL IVP PRN (13:55)
[2021-02-08] MEDS ORDERED: Perflutren Lipid Microsphere 1.3 ML in 0.9 % Sodium Chloride 8.7 ML IVP PRN (14:01)
[2021-02-08 14:26] LABS: Adenovirus Not Detected (Not Detect); Bordetella Pertussis Not Detected (Not Detect); Chlamydophila pneumoniae Not Detected (Not Detect); Coronavirus 229E Not Detected (Not Detect); Coronavirus HKU1 Not Detected (Not Detect); Coronavirus NL63 Not Detected (Not Detect); Coronavirus OC43 Not Detected (Not Detect); Human Metapneumovirus Not Detected (Not Detect); Human Rhinovirus/Enterovirus Not Detected (Not Detect); Influenza A Subtype 2009 H1 Not Detected (Not Detect); Influenza B Not Detected (Not Detect); Mycoplasma pneumoniae Not Detected (Not Detect); Parainfluenza Virus 1 Not Detected (Not Detect); Parainfluenza Virus 2 Not Detected (Not Detect); Parainfluenza Virus 3 Not Detected (Not Detect); Parainfluenza Virus 4 Not Detected (Not Detect); Respiratory Syncytial Virus Not Detected (Not Detect); SARS-CoV-2 Not Detected (Not Detect)
[2021-02-08] MEDS ORDERED: 0.9 % Sodium Chloride 250 ML ONE (14:58)
[2021-02-08] MEDS ORDERED: *HR* Norepinephrine 4 MG/4 ML VIAL IVC ONE (14:58)
[2021-02-08] MEDS ORDERED: Vancomycin 1,500 MG/265 ML IV.SOLN IVPB SCH (15:00)
[2021-02-08] MEDS ORDERED: Norepinephrine 4 MG/254 ML IV.SOLN IVC SCH (15:00)
[2021-02-08] MEDS ORDERED: 0.9 % Sodium Chloride 1,000 ML ONE (15:16)
[2021-02-08] MEDS ORDERED: 0.9 % Sodium Chloride 1,000 ML IV ONE (15:24)
[2021-02-08 16:10] LABS: Phosphorous 3.4 mg/dL (2.7-4.5)
[2021-02-08] MEDS: Piperacillin/Tazobactam 3.375 GM in 0.9 % Sodium Chloride Mini Bag 100 ML IVPB SCH ×2 (17:45→23:58)
[2021-02-08] MEDS: Ipratropium/Albuterol Neb 3 ML IH SCH (22:21)
[2021-02-08 22:24] LABS: Calcium 8.3 mg/dL (8.6-10.3); Potassium 3.3 mEq/L (3.5-5.1)
[2021-02-08 22:56] LABS: Magnesium 1.8 mg/dL (1.6-2.6)
[2021-02-09] MEDS: Ipratropium/Albuterol Neb 3 ML IH SCH ×4 (04:37→23:00)
[2021-02-09 06:10] LABS: Red Cell Distribution Width 14.4 % (11.5-14.5); Segmented Neutrophils % 79.8 %
[2021-02-09 06:11] LABS: Basophils # 0.2 K/mcL (0.0-0.2); Basophils % 0.5 %; Eosinophils # 0.2 K/mcL (0.0-0.6); Eosinophils % 0.5 %; Hematocrit 31.5 % (35.3-44.9); Hemoglobin 10.3 g/dL (11.5-15.4); Immature Granulocytes % 0.8 % (0-4); Lymphocytes # 4.9 K/mcL (0.6-4.6); Lymphocytes % 13.3 %; Mean Corpuscular HGB Conc 32.7 g/dL (31.6-35.5); Mean Corpuscular Hemoglobin 29.7 pg (28.0-33.3); Mean Corpuscular Volume 90.8 fL (83.0-100.0); Mean Platelet Volume 10.3 fL (9.4-12.4); Monocytes # 1.9 K/mcL (0.0-1.3); Monocytes % 5.1 %; Neutrophils # 29.3 K/mcL (1.6-8.9); Platelet Count 221 K/mcL (140-400); Red Blood Count 3.47 M/mcL (3.82-4.97)
[2021-02-09 06:13] LABS: White Blood Count 36.7 K/mcL (4.3-11.1)
[2021-02-09 06:17] LABS: INR 1.6; Prothrombin Time 18.2 Seconds (9.4-12.1)
[2021-02-09 06:29] LABS: Estimated Average Glucose 131 mg/dl; Hemoglobin A1C 6.2 %
[2021-02-09 06:30] LABS: Chol/HDL Ratio 1.8 (0-4.9)
[2021-02-09 06:32] LABS: Albumin 3.1 g/dL (3.5-5.7); Albumin/Globulin Ratio 1.2 (1.1-2.2); Bilirubin,Total 0.9 mg/dL (0.3-1.0); Calcium 8.1 mg/dL (8.6-10.3); Chol/HDL Ratio 1.8 (0-4.9); Globulin 2.5 g/dL (2.4-3.5); Total Protein 5.6 g/dL (6.4-8.9)
[2021-02-09] MEDS: Piperacillin/Tazobactam 3.375 GM in 0.9 % Sodium Chloride Mini Bag 100 ML IVPB SCH ×3 (07:58→23:22)
[2021-02-09] MEDS: Aspirin 81 MG TAB.CHEW PO SCH (08:24)
[2021-02-09] MEDS ORDERED: Aspirin 81 MG TAB.CHEW PO SCH (09:00)
[2021-02-09] MEDS ORDERED: Pantoprazole 40 MG VIAL IVP SCH (09:00)
[2021-02-09] MEDS ORDERED: Perflutren Lipid Microsphere 1.3 ML in 0.9 % Sodium Chloride 8.7 ML IVP PRN (14:28)
[2021-02-09] MEDS ORDERED: Naloxone 0.4 MG/ML INJ IVP PRN (14:28)
[2021-02-09] MEDS ORDERED: *HR* HYDROcodone/Acet 5/325 mg TABLET PO PRN (14:28)
[2021-02-09] MEDS ORDERED: diazePAM 5 MG TABLET PO PRN (14:28)
[2021-02-09] MEDS ORDERED: Ondansetron 4 MG/2 ML VIAL IVP PRN (14:28)
[2021-02-09] MEDS: Sucralfate 1 GM TABLET PO SCH (16:33)
[2021-02-09] MEDS: Apixaban 2.5 MG TABLET PO SCH (16:33)
[2021-02-09] MEDS: Pregabalin 50 MG CAPSULE PO SCH (20:05)
[2021-02-10] MEDS: Ipratropium/Albuterol Neb 3 ML IH SCH ×4 (03:44→22:12)
[2021-02-10] MEDS: Piperacillin/Tazobactam 3.375 GM in 0.9 % Sodium Chloride Mini Bag 100 ML IVPB SCH (08:06)
[2021-02-10] MEDS: Sucralfate 1 GM TABLET PO SCH ×2 (08:06→17:10)
[2021-02-10] MEDS: lisinopriL 10 MG TABLET PO SCH (08:06)
[2021-02-10] MEDS: Apixaban 2.5 MG TABLET PO SCH ×2 (08:07→20:00)
[2021-02-10] MEDS: Pantoprazole 40 MG VIAL IVP SCH (08:07)
[2021-02-10] MEDS: hydroCHLOROthiazide 25 MG TABLET PO SCH (08:07)
[2021-02-10 08:44] LABS: Basophils # 0.1 K/mcL (0.0-0.2); Basophils % 0.5 %; Eosinophils # 0.2 K/mcL (0.0-0.6); Eosinophils % 1.2 %; Hematocrit 33.6 % (35.3-44.9); Hemoglobin 10.7 g/dL (11.5-15.4); Immature Granulocytes % 0.5 % (0-4); Lymphocytes # 2.6 K/mcL (0.6-4.6); Lymphocytes % 13.2 %; Mean Corpuscular HGB Conc 31.8 g/dL (31.6-35.5); Mean Corpuscular Hemoglobin 29.2 pg (28.0-33.3); Mean Corpuscular Volume 91.8 fL (83.0-100.0); Mean Platelet Volume 10.7 fL (9.4-12.4); Monocytes # 1.7 K/mcL (0.0-1.3); Monocytes % 8.7 %; Platelet Count 226 K/mcL (140-400); Red Blood Count 3.66 M/mcL (3.82-4.97); Red Cell Distribution Width 14.4 % (11.5-14.5); Segmented Neutrophils % 75.9 %; White Blood Count 19.7 K/mcL (4.3-11.1)
[2021-02-10] MEDS ORDERED: NON-FORMULARY MEDICATION 1 EACH EACH (Pantoprazole Sodium [Protonix] 40 MG Tablet.Dr) PO SCH (09:00)
[2021-02-10] MEDS ORDERED: PRAVASTATIN SODIUM 20 MG PO SCH (09:00)
[2021-02-10 09:03] LABS: Calcium 8.5 mg/dL (8.6-10.3); Potassium 3.3 mEq/L (3.5-5.1)
[2021-02-10] MEDS ORDERED: Potassium Chloride Elixir 20 MEQ/15 ML UDC PO ONE (12:04)
[2021-02-10] MEDS: Amoxicillin/Clavulanate 500 MG TABLET PO SCH (17:10)
[2021-02-10] MEDS: Pregabalin 50 MG CAPSULE PO SCH (19:59)
[2021-02-11 02:21] LABS: Basophils # 0.1 K/mcL (0.0-0.2); Basophils % 0.6 %; Eosinophils # 0.6 K/mcL (0.0-0.6); Eosinophils % 4.1 %; Hematocrit 31.4 % (35.3-44.9); Hemoglobin 10.2 g/dL (11.5-15.4); Immature Granulocytes % 0.4 % (0-4); Lymphocytes # 2.7 K/mcL (0.6-4.6); Lymphocytes % 17.1 %; Mean Corpuscular HGB Conc 32.5 g/dL (31.6-35.5); Mean Corpuscular Hemoglobin 29.3 pg (28.0-33.3); Mean Corpuscular Volume 90.2 fL (83.0-100.0); Mean Platelet Volume 11.2 fL (9.4-12.4); Monocytes # 1.9 K/mcL (0.0-1.3); Neutrophils # 10.3 K/mcL (1.6-8.9); Platelet Count 216 K/mcL (140-400); Red Blood Count 3.48 M/mcL (3.82-4.97); Red Cell Distribution Width 14.2 % (11.5-14.5); Segmented Neutrophils % 65.8 %; White Blood Count 15.6 K/mcL (4.3-11.1)
[2021-02-11 02:37] LABS: Calcium 8.5 mg/dL (8.6-10.3); Potassium 3.6 mEq/L (3.5-5.1)
[2021-02-11] MEDS: Ipratropium/Albuterol Neb 3 ML IH SCH ×2 (03:26→10:04)
[2021-02-11] MEDS: lisinopriL 10 MG TABLET PO SCH (08:57)
[2021-02-11] MEDS: Pantoprazole 40 MG VIAL IVP SCH (08:57)
[2021-02-11] MEDS: Sucralfate 1 GM TABLET PO SCH (08:57)
[2021-02-11] MEDS: Amoxicillin/Clavulanate 500 MG TABLET PO SCH (08:57)
[2021-02-11] MEDS: Apixaban 2.5 MG TABLET PO SCH (08:57)
[2021-02-11] MEDS: hydroCHLOROthiazide 25 MG TABLET PO SCH (09:03)
[2021-02-11 11:16] VITALS: BP 113/54; PULSE 85; TEMP 98.6; O2SAT 97
== END 2021-02-11 13:10 | disposition home or self-care (01) | DRG 871 ==
LOC: EMEROOARM 09:37 → SUATTDRO 19:32 → ICNU 19:32 → 2ANU 02-09 10:31
PROVIDERS: ADMIT Internal Medicine; ATTEND Family Medicine

== ENCOUNTER 2021-05-03 10:09 | Inpatient (IN) ==
[2021-05-03] MEDS ORDERED: 0.9 % Sodium Chloride 1,000 ML IVC ONE (10:36)
[2021-05-03] MEDS ORDERED: Acetaminophen 325 MG TABLET PO ONE (10:39)
[2021-05-03] MEDS ORDERED: Ondansetron 4 MG/2 ML VIAL IVP ONE (10:47)
[2021-05-03 11:00] LABS: Basophils # 0.1 K/mcL (0.0-0.2); Basophils % 0.3 %; Eosinophils # 0.1 K/mcL (0.0-0.6); Eosinophils % 0.5 %; Hematocrit 42.1 % (35.3-44.9); Hemoglobin 13.6 g/dL (11.5-15.4); Immature Granulocytes % 0.3 % (0-4); Lymphocytes % 12.7 %; Mean Corpuscular HGB Conc 32.3 g/dL (31.6-35.5); Mean Corpuscular Volume 86.8 fL (83.0-100.0); Mean Platelet Volume 10.6 fL (9.4-12.4); Monocytes # 1.3 K/mcL (0.0-1.3); Monocytes % 8.4 %; Neutrophils # 12.2 K/mcL (1.6-8.9); Platelet Count 367 K/mcL (140-400); Red Blood Count 4.85 M/mcL (3.82-4.97); Red Cell Distribution Width 15.6 % (11.5-14.5); Segmented Neutrophils % 77.8 %; White Blood Count 15.7 K/mcL (4.3-11.1)
[2021-05-03 11:07] LABS: INR 1.3
[2021-05-03 11:22] LABS: Albumin/Globulin Ratio 1.3 (1.1-2.2); Bilirubin,Direct 0.1 mg/dL (0.0-0.2); Bilirubin,Indirect 0.4 mg/dL (0.0-1.0); Bilirubin,Total 0.5 mg/dL (0.3-1.0); Calcium 9.1 mg/dL (8.6-10.3); Globulin 3.1 g/dL (2.4-3.5); Potassium 2.9 mEq/L (3.5-5.1); Total Protein 7.1 g/dL (6.4-8.9); Troponin I 0.03 ng/mL (< 0.04)
[2021-05-03] MEDS ORDERED: Potassium Chloride Elixir 20 MEQ/15 ML UDC PO ONE (11:28)
[2021-05-03 11:42] LABS: Bilirubin,Urine Negative (Negative); Blood,Urine Negative (Negative); Clarity,Urine Clear (Clear); Color,Urine Light-Yellow (Yellow); Glucose,Urine (UA) Normal (Normal); Ketones,Urine Negative (Negative); Leukocyte Esterase,Urine Negative (Negative); Nitrite,Urine Negative (Negative); PH,Urine 6.5 pH Units (5.0-8.0); Protein,Urine Trace mg/dL (Neg-Trace); Specific Gravity,Urine 1.017 (1.010-1.025); Urobilinogen,Urine Normal (Normal)
[2021-05-03] MEDS ORDERED: cefTRIAXone 1,000 MG in 0.9 % Sodium Chloride Mini Bag 100 ML IVPB ONE (12:04)
[2021-05-03] MEDS ORDERED: Azithromycin 500 MG in 0.9 % Sodium Chloride 250 ML IVPB ONE (12:04)
[2021-05-03] MEDS ORDERED: Ondansetron 4 MG/2 ML VIAL IVP PRN (13:11)
[2021-05-03] MEDS ORDERED: Naloxone 0.4 MG/ML INJ IVP PRN (13:11)
[2021-05-03] MEDS ORDERED: Melatonin 3 MG TABLET PO PRN (13:11)
[2021-05-03] MEDS ORDERED: Ipratropium/Albuterol Neb 3 ML IH PRN (13:15)
[2021-05-03] MEDS ORDERED: Ringers Solution, Lactated 1,000 ML IVC SCH (13:15)
[2021-05-03 13:28] LABS: Influenza A PCR Negative (Negative); Influenza B PCR Negative (Negative); Resp. Syncytial Virus PCR Negative (Negative); SARS-CoV-2 by PCR (In House) Negative (Negative)
[2021-05-03] MEDS: Acetaminophen 325 MG TABLET PO PRN (17:16)
[2021-05-04 06:04] LABS: Hematocrit 40.4 % (35.3-44.9); Hemoglobin 13.1 g/dL (11.5-15.4); Mean Corpuscular HGB Conc 32.4 g/dL (31.6-35.5); Mean Corpuscular Hemoglobin 29.2 pg (28.0-33.3); Mean Corpuscular Volume 90.2 fL (83.0-100.0); Mean Platelet Volume 10.9 fL (9.4-12.4); Platelet Count 380 K/mcL (140-400); Red Blood Count 4.48 M/mcL (3.82-4.97); Red Cell Distribution Width 16.2 % (11.5-14.5)
[2021-05-04 06:11] LABS: White Blood Count 24.1 K/mcL (4.3-11.1)
[2021-05-04 06:23] LABS: Albumin 3.7 g/dL (3.5-5.7); Albumin/Globulin Ratio 1.2 (1.1-2.2); Bilirubin,Total 0.6 mg/dL (0.3-1.0); Calcium 8.8 mg/dL (8.6-10.3); Globulin 3.1 g/dL (2.4-3.5); Magnesium 1.3 mg/dL (1.6-2.6); Potassium 2.9 mEq/L (3.5-5.1); Total Protein 6.8 g/dL (6.4-8.9)
[2021-05-04] MEDS ORDERED: Ergocalciferol (VIT D2) 50,000 UNIT (1.25MG) CAP PO SCH (08:00)
[2021-05-04] MEDS ORDERED: Cefepime HCl 1,000 MG in Water for inj. (sterile) 10 ML IVP SCH (08:00)
[2021-05-04] MEDS: diazePAM 5 MG TABLET PO SCH ×3 (08:28→19:38)
[2021-05-04] MEDS: Loratadine 10 MG TABLET PO SCH (08:29)
[2021-05-04] MEDS: MetroNIDAZOLE 500 MG/100 ML 500 MG/100 ML BAG IVPB SCH ×3 (08:37→23:50)
[2021-05-04] MEDS ORDERED: Vancomycin 1,250 MG/262.5 ML IV.SOLN IVPB ONE (09:00)
[2021-05-04] MEDS ORDERED: Azithromycin 500 MG in 0.9 % Sodium Chloride 250 ML IVPB SCH (13:00)
[2021-05-04] MEDS ORDERED: cefTRIAXone 1,000 MG in Water for inj. (sterile) 10 ML IVP SCH (13:00)
[2021-05-04] MEDS: Cefepime HCl 1,000 MG in Water for inj. (sterile) 10 ML IVP SCH (19:39)
[2021-05-04] MEDS: Apixaban 2.5 MG TABLET PO SCH (19:39)
[2021-05-04] MEDS: Acetaminophen 325 MG TABLET PO PRN (19:51)
[2021-05-05] MEDS: Cefepime HCl 1,000 MG in Water for inj. (sterile) 10 ML IVP SCH (05:54)
[2021-05-05 08:50] LABS: Basophils # 0.1 K/mcL (0.0-0.2); Basophils % 0.6 %; Eosinophils # 0.7 K/mcL (0.0-0.6); Eosinophils % 4.3 %; Hematocrit 37.5 % (35.3-44.9); Hemoglobin 12.1 g/dL (11.5-15.4); Immature Granulocytes % 0.8 % (0-4); Lymphocytes # 3.5 K/mcL (0.6-4.6); Lymphocytes % 22.7 %; Mean Corpuscular HGB Conc 32.3 g/dL (31.6-35.5); Mean Corpuscular Hemoglobin 28.8 pg (28.0-33.3); Mean Corpuscular Volume 89.3 fL (83.0-100.0); Mean Platelet Volume 10.9 fL (9.4-12.4); Monocytes # 1.3 K/mcL (0.0-1.3); Monocytes % 8.3 %; Neutrophils # 9.8 K/mcL (1.6-8.9); Platelet Count 383 K/mcL (140-400); Red Cell Distribution Width 15.9 % (11.5-14.5); Segmented Neutrophils % 63.3 %; White Blood Count 15.6 K/mcL (4.3-11.1)
[2021-05-05 09:07] LABS: Calcium 8.9 mg/dL (8.6-10.3); Magnesium 1.5 mg/dL (1.6-2.6); Potassium 3.3 mEq/L (3.5-5.1)
[2021-05-05] MEDS: MetroNIDAZOLE 500 MG/100 ML 500 MG/100 ML BAG IVPB SCH ×3 (09:11→23:37)
[2021-05-05] MEDS: Apixaban 2.5 MG TABLET PO SCH ×2 (09:14→21:14)
[2021-05-05] MEDS: diazePAM 5 MG TABLET PO SCH ×3 (09:14→21:14)
[2021-05-05] MEDS: Loratadine 10 MG TABLET PO SCH (09:14)
[2021-05-05] MEDS: Acetaminophen 325 MG TABLET PO PRN (14:13)
[2021-05-05] MEDS: Cefepime HCl 2,000 MG in 0.9 % Sodium Chloride Mini Bag 100 ML IVPB SCH (16:20)
[2021-05-06] MEDS ORDERED: *HR* Metoprolol 5 MG/5 ML VIAL IVP ONE (00:03)
[2021-05-06 04:53] LABS: Basophils # 0.1 K/mcL (0.0-0.2); Basophils % 0.8 %; Eosinophils # 0.7 K/mcL (0.0-0.6); Eosinophils % 4.7 %; Hematocrit 39.5 % (35.3-44.9); Hemoglobin 12.5 g/dL (11.5-15.4); Immature Granulocytes % 0.6 % (0-4); Lymphocytes % 27.2 %; Mean Corpuscular HGB Conc 31.6 g/dL (31.6-35.5); Mean Corpuscular Volume 88.4 fL (83.0-100.0); Mean Platelet Volume 10.7 fL (9.4-12.4); Monocytes # 1.8 K/mcL (0.0-1.3); Neutrophils # 8.1 K/mcL (1.6-8.9); Platelet Count 414 K/mcL (140-400); Red Blood Count 4.47 M/mcL (3.82-4.97); Red Cell Distribution Width 15.9 % (11.5-14.5); Segmented Neutrophils % 54.7 %; White Blood Count 14.8 K/mcL (4.3-11.1)
[2021-05-06 05:13] LABS: Calcium 9.4 mg/dL (8.6-10.3); Magnesium 1.8 mg/dL (1.6-2.6); Potassium 3.5 mEq/L (3.5-5.1)
[2021-05-06] MEDS: Cefepime HCl 2,000 MG in 0.9 % Sodium Chloride Mini Bag 100 ML IVPB SCH (05:19)
[2021-05-06] MEDS: MetroNIDAZOLE 500 MG/100 ML 500 MG/100 ML BAG IVPB SCH ×3 (07:44→23:51)
[2021-05-06] MEDS: Apixaban 2.5 MG TABLET PO SCH ×2 (07:45→21:06)
[2021-05-06] MEDS: diazePAM 5 MG TABLET PO SCH ×3 (07:46→21:06)
[2021-05-06] MEDS: Loratadine 10 MG TABLET PO SCH (07:46)
[2021-05-07 01:52] LABS: Basophils # 0.1 K/mcL (0.0-0.2); Eosinophils # 0.7 K/mcL (0.0-0.6); Eosinophils % 5.6 %; Hematocrit 39.3 % (35.3-44.9); Hemoglobin 12.7 g/dL (11.5-15.4); Immature Granulocytes % 0.7 % (0-4); Lymphocytes # 3.7 K/mcL (0.6-4.6); Lymphocytes % 29.8 %; Mean Corpuscular HGB Conc 32.3 g/dL (31.6-35.5); Mean Corpuscular Hemoglobin 28.3 pg (28.0-33.3); Mean Corpuscular Volume 87.7 fL (83.0-100.0); Mean Platelet Volume 10.6 fL (9.4-12.4); Monocytes # 2.2 K/mcL (0.0-1.3); Monocytes % 17.4 %; Neutrophils # 5.6 K/mcL (1.6-8.9); Platelet Count 459 K/mcL (140-400); Red Blood Count 4.48 M/mcL (3.82-4.97); Red Cell Distribution Width 15.8 % (11.5-14.5); Segmented Neutrophils % 45.5 %; White Blood Count 12.4 K/mcL (4.3-11.1)
[2021-05-07 02:04] LABS: Calcium 9.1 mg/dL (8.6-10.3); Magnesium 2.3 mg/dL (1.6-2.6); Potassium 3.3 mEq/L (3.5-5.1)
[2021-05-07] MEDS ORDERED: Cefepime HCl 2,000 MG in 0.9 % Sodium Chloride Mini Bag 100 ML IVPB SCH (06:00)
[2021-05-07] MEDS: diazePAM 5 MG TABLET PO SCH ×3 (07:51→21:04)
[2021-05-07] MEDS: Loratadine 10 MG TABLET PO SCH (07:51)
[2021-05-07] MEDS: MetroNIDAZOLE 500 MG/100 ML 500 MG/100 ML BAG IVPB SCH (07:51)
[2021-05-07] MEDS: Apixaban 2.5 MG TABLET PO SCH ×2 (07:51→21:04)
[2021-05-07] MEDS: Amoxicillin/Clavulanate 500 MG TABLET PO SCH (16:54)
[2021-05-07] MEDS: Budesonide/Formoterol 160/4.5 1 PUFF INH IH SCH (20:51)
[2021-05-08 02:07] LABS: Basophils # 0.1 K/mcL (0.0-0.2); Basophils % 1.3 %; Eosinophils # 0.6 K/mcL (0.0-0.6); Eosinophils % 5.7 %; Hemoglobin 12.2 g/dL (11.5-15.4); Immature Granulocytes % 1.1 % (0-4); Lymphocytes # 3.5 K/mcL (0.6-4.6); Mean Corpuscular HGB Conc 31.3 g/dL (31.6-35.5); Mean Corpuscular Hemoglobin 27.9 pg (28.0-33.3); Mean Corpuscular Volume 89.2 fL (83.0-100.0); Mean Platelet Volume 10.5 fL (9.4-12.4); Monocytes # 1.8 K/mcL (0.0-1.3); Monocytes % 17.4 %; Neutrophils # 4.1 K/mcL (1.6-8.9); Platelet Count 441 K/mcL (140-400); Red Blood Count 4.37 M/mcL (3.82-4.97); Red Cell Distribution Width 15.8 % (11.5-14.5); Segmented Neutrophils % 40.5 %; White Blood Count 10.2 K/mcL (4.3-11.1)
[2021-05-08 02:24] LABS: Magnesium 1.9 mg/dL (1.6-2.6); Potassium 3.9 mEq/L (3.5-5.1)
[2021-05-08] MEDS: Budesonide/Formoterol 160/4.5 1 PUFF INH IH SCH (07:41)
[2021-05-08] MEDS: diazePAM 5 MG TABLET PO SCH (09:20)
[2021-05-08] MEDS: Loratadine 10 MG TABLET PO SCH (09:20)
[2021-05-08] MEDS: Apixaban 2.5 MG TABLET PO SCH (09:20)
[2021-05-08] MEDS: Amoxicillin/Clavulanate 500 MG TABLET PO SCH (09:20)
[2021-05-08 11:02] VITALS: BP 146/57; PULSE 69; TEMP 97.8; O2SAT 95
== END 2021-05-08 13:41 | disposition home or self-care (01) | DRG 194 ==
LOC: EMEROOARM 10:09 → 2ANU 10:09 → SUATTDRO 14:08
PROVIDERS: ADMIT Internal Medicine; ATTEND Pharmacist

== ENCOUNTER 2021-10-03 23:13 | Observation (INO) ==
[2021-10-04] MEDS ORDERED: 0.9 % Sodium Chloride 1,000 ML IVC SCH (05:00)
[2021-10-04] MEDS ORDERED: Naloxone 0.4 MG/ML INJ IVP PRN (05:00)
[2021-10-04] MEDS ORDERED: Ondansetron 4 MG/2 ML VIAL IVP PRN (05:00)
[2021-10-04] MEDS ORDERED: Acetaminophen 325 MG TABLET PO PRN (05:00)
[2021-10-04] MEDS ORDERED: Melatonin 3 MG TABLET PO PRN (05:00)
[2021-10-04 06:13] LABS: Bilirubin,Urine Negative (Negative); Blood,Urine Negative (Negative); Clarity,Urine Clear (Clear); Color,Urine Colorless (Yellow); Glucose,Urine (UA) Normal (Normal); Ketones,Urine Negative (Negative); Leukocyte Esterase,Urine Negative (Negative); Nitrite,Urine Negative (Negative); PH,Urine 6.5 pH Units (5.0-8.0); Protein,Urine Negative (Neg-Trace); Specific Gravity,Urine 1.008 (1.010-1.025); Urobilinogen,Urine Normal (Normal)
[2021-10-04 06:42] LABS: Basophils # 0.1 K/mcL (0.0-0.2); Basophils % 0.7 %; Eosinophils # 0.5 K/mcL (0.0-0.6); Eosinophils % 3.3 %; Hematocrit 42.2 % (35.3-44.9); Hemoglobin 13.6 g/dL (11.5-15.4); Immature Granulocytes % 0.2 % (0-4); Lymphocytes # 4.9 K/mcL (0.6-4.6); Lymphocytes % 33.2 %; Mean Corpuscular HGB Conc 32.2 g/dL (31.6-35.5); Mean Corpuscular Hemoglobin 28.7 pg (28.0-33.3); Mean Platelet Volume 10.8 fL (9.4-12.4); Monocytes # 1.8 K/mcL (0.0-1.3); Monocytes % 12.5 %; Neutrophils # 7.3 K/mcL (1.6-8.9); Platelet Count 341 K/mcL (140-400); Red Blood Count 4.74 M/mcL (3.82-4.97); Red Cell Distribution Width 14.3 % (11.5-14.5); Segmented Neutrophils % 50.1 %; White Blood Count 14.7 K/mcL (4.3-11.1)
[2021-10-04 06:48] LABS: INR 1.2; Prothrombin Time 13.8 Seconds (9.4-12.1)
[2021-10-04 06:51] LABS: Activated Partial Thrombo Time 35.4 Seconds (26.0-36.0)
[2021-10-04 06:57] LABS: Adenovirus Not Detected (Not Detect); Bordetella Pertussis Not Detected (Not Detect); Chlamydophila pneumoniae Not Detected (Not Detect); Coronavirus 229E Not Detected (Not Detect); Coronavirus HKU1 Not Detected (Not Detect); Coronavirus NL63 Not Detected (Not Detect); Coronavirus OC43 Not Detected (Not Detect); Human Metapneumovirus Not Detected (Not Detect); Human Rhinovirus/Enterovirus Not Detected (Not Detect); Influenza A Subtype 2009 H1 Not Detected (Not Detect); Influenza B Not Detected (Not Detect); Mycoplasma pneumoniae Not Detected (Not Detect); Parainfluenza Virus 1 Not Detected (Not Detect); Parainfluenza Virus 2 Not Detected (Not Detect); Parainfluenza Virus 3 Not Detected (Not Detect); Parainfluenza Virus 4 Not Detected (Not Detect); Respiratory Syncytial Virus Not Detected (Not Detect); SARS-CoV-2 Not Detected (Not Detect)
[2021-10-04 07:04] LABS: Albumin 3.8 g/dL (3.5-5.7); Albumin/Globulin Ratio 1.2 (1.1-2.2); Bilirubin,Total 0.4 mg/dL (0.3-1.0); Calcium 9.4 mg/dL (8.6-10.3); Globulin 3.2 g/dL (2.4-3.5); Potassium 3.1 mEq/L (3.5-5.1)
[2021-10-04] MEDS: Azithromycin 500 MG in 0.9 % Sodium Chloride 250 ML IVPB SCH (08:21)
[2021-10-04] MEDS: cefTRIAXone 1,000 MG in 0.9 % Sodium Chloride 10 ML IVP SCH (08:21)
[2021-10-04] MEDS ORDERED: Perflutren Lipid Microsphere 1.3 ML in 0.9 % Sodium Chloride 8.7 ML IVP PRN (08:40)
[2021-10-04 12:36] LABS: % Iron Saturation 12 % (15-50); Iron 52 mcg/dL (50-170); Transferrin 320 mg/dL (203-362)
[2021-10-04 12:53] LABS: Ferritin 24 ng/mL (10-120)
[2021-10-04] MEDS ORDERED: Albuterol 2.5 MG/3 ML NEBULIZER IH PRN (15:01)
[2021-10-04] MEDS ORDERED: Pregabalin 50 MG CAPSULE PO PRN (15:01)
[2021-10-04] MEDS ORDERED: Potassium Chloride Elixir 20 MEQ/15 ML UDC PO ONE (15:03)
[2021-10-04] MEDS ORDERED: amLODIPine 5 MG TABLET PO SCH ×2 (15:15→16:48)
[2021-10-04] MEDS: Apixaban 5 MG TABLET PO SCH (20:35)
[2021-10-04] MEDS: hydroCHLOROthiazide 25 MG TABLET PO SCH (20:35)
[2021-10-04 20:58] LABS: Adenovirus F 40/41 PCR Not detected (Not detect); Astrovirus PCR Not detected (Not detect); C.difficile Toxin A/B Gene PCR Not detected (Not detect); Campylobacter by PCR Not detected (Not detect); Cryptosporidium by PCR Not detected (Not detect); Cyclospora cayetanensis PCR Not detected (Not detect); E. coli O157 by PCR Not detected (Not detect); Entamoeba histolytica PCR Not detected (Not detect); Enteroaggregative E.coli(EAEC) Not detected (Not detect); Enteropathogenic E.coli(EPEC) Not detected (Not detect); Enterotoxigenic E.coli (ETEC) Not detected (Not detect); Giardia lamblia PCR Not detected (Not detect); Norovirus GI/GII PCR Not detected (Not detect); Plesiomonas shigelloides PCR Not detected (Not detect); Rotavirus A PCR Not detected (Not detect); Salmonella PCR Not detected (Not detect); Sapovirus PCR Not detected (Not detect); Shig/EnteroinvasiveE coli EIEC Not detected (Not detect); Shigalike tox-prod E coli STEC Not detected (Not detect); Vibrio PCR Not detected (Not detect); Vibrio cholerae PCR Not detected (Not detect); Yersinia enterocolitica PCR Not detected (Not detect)
[2021-10-05 01:37] LABS: Basophils # 0.1 K/mcL (0.0-0.2); Eosinophils # 0.7 K/mcL (0.0-0.6); Eosinophils % 5.6 %; Hematocrit 35.3 % (35.3-44.9); Hemoglobin 11.4 g/dL (11.5-15.4); Immature Granulocytes % 0.2 % (0-4); Lymphocytes # 4.5 K/mcL (0.6-4.6); Lymphocytes % 38.7 %; Mean Corpuscular HGB Conc 32.3 g/dL (31.6-35.5); Mean Corpuscular Hemoglobin 29.1 pg (28.0-33.3); Mean Corpuscular Volume 90.1 fL (83.0-100.0); Mean Platelet Volume 11.1 fL (9.4-12.4); Monocytes # 1.9 K/mcL (0.0-1.3); Monocytes % 16.5 %; Neutrophils # 4.4 K/mcL (1.6-8.9); Platelet Count 305 K/mcL (140-400); Red Blood Count 3.92 M/mcL (3.82-4.97); Red Cell Distribution Width 14.4 % (11.5-14.5); White Blood Count 11.6 K/mcL (4.3-11.1)
[2021-10-05 02:13] LABS: Calcium 8.4 mg/dL (8.6-10.3); Potassium 4.6 mEq/L (3.5-5.1)
[2021-10-05] MEDS: Azithromycin 500 MG in 0.9 % Sodium Chloride 250 ML IVPB SCH (06:11)
[2021-10-05] MEDS ORDERED: 0.9 % Sodium Chloride 1,000 ML IVC SCH (08:00)
[2021-10-05] MEDS: Apixaban 5 MG TABLET PO SCH ×2 (08:57→20:21)
[2021-10-05] MEDS: Loratadine 10 MG TABLET PO SCH (08:57)
[2021-10-05] MEDS: cefTRIAXone 1,000 MG in 0.9 % Sodium Chloride 10 ML IVP SCH (08:57)
[2021-10-05] MEDS: hydroCHLOROthiazide 25 MG TABLET PO SCH (08:57)
[2021-10-05] MEDS ORDERED: Cholecalciferol (D-3) 1,000 UNIT (25MCG) TABLET PO SCH (09:00)
[2021-10-05] MEDS ORDERED: hydrALAZINE 10 MG TABLET PO PRN (14:50)
[2021-10-05] MEDS: diazePAM 5 MG TABLET PO PRN (17:57)
[2021-10-05] MEDS ORDERED: *HR* Labetalol 20 MG/4 ML SYRINGE IVP ONE (20:07)
[2021-10-06] MEDS: diazePAM 5 MG TABLET PO PRN (01:14)
[2021-10-06] MEDS ORDERED: *HR* Metoprolol 5 MG/5 ML VIAL IVP ONE ×2 (02:28→05:03)
[2021-10-06 09:53] LABS: Calcium 10.4 mg/dL (8.6-10.3)
[2021-10-06] MEDS: Cholecalciferol (D-3) 1,000 UNIT (25MCG) TABLET PO SCH (11:28)
[2021-10-06] MEDS: Apixaban 5 MG TABLET PO SCH ×2 (11:28→20:43)
[2021-10-06] MEDS: Loratadine 10 MG TABLET PO SCH (11:28)
[2021-10-06 11:41] LABS: Basophils # 0.1 K/mcL (0.0-0.2); Basophils % 0.3 %; Eosinophils # 0.1 K/mcL (0.0-0.6); Eosinophils % 0.4 %; Hematocrit 44.1 % (35.3-44.9); Immature Granulocytes % 0.3 % (0-4); Lymphocytes # 3.7 K/mcL (0.6-4.6); Lymphocytes % 22.5 %; Mean Corpuscular HGB Conc 32.7 g/dL (31.6-35.5); Mean Corpuscular Hemoglobin 28.6 pg (28.0-33.3); Mean Corpuscular Volume 87.7 fL (83.0-100.0); Mean Platelet Volume 10.8 fL (9.4-12.4); Monocytes # 1.4 K/mcL (0.0-1.3); Monocytes % 8.4 %; Neutrophils # 11.2 K/mcL (1.6-8.9); Platelet Count 363 K/mcL (140-400); Red Blood Count 5.03 M/mcL (3.82-4.97); Red Cell Distribution Width 14.2 % (11.5-14.5); Segmented Neutrophils % 68.1 %; White Blood Count 16.5 K/mcL (4.3-11.1)
[2021-10-06 11:43] LABS: Hemoglobin 14.4 g/dL (11.5-15.4)
[2021-10-06] MEDS: Thiamine (B-1) 100 MG in 0.9 % Sodium Chloride 50 ML IVPB SCH (13:10)
[2021-10-06] MEDS ORDERED: 0.9 % Sodium Chloride 1,000 ML IVC SCH (14:15)
[2021-10-06] MEDS: Piperacillin/Tazobactam 3.375 GM in 0.9 % Sodium Chloride Mini Bag 100 ML IVPB SCH ×2 (14:47→20:44)
[2021-10-07] MEDS: Piperacillin/Tazobactam 3.375 GM in 0.9 % Sodium Chloride Mini Bag 100 ML IVPB SCH ×2 (05:11→12:57)
[2021-10-07 07:09] VITALS: TEMP 98.1
[2021-10-07] MEDS ORDERED: Simethicone 80 MG TAB.CHEW PO PRN (08:00)
[2021-10-07] MEDS: Apixaban 5 MG TABLET PO SCH (08:06)
[2021-10-07] MEDS: Loratadine 10 MG TABLET PO SCH (08:06)
[2021-10-07] MEDS: Cholecalciferol (D-3) 1,000 UNIT (25MCG) TABLET PO SCH (08:06)
[2021-10-07 08:10] LABS: Basophils # 0.1 K/mcL (0.0-0.2); Basophils % 0.8 %; Eosinophils # 0.7 K/mcL (0.0-0.6); Eosinophils % 5.2 %; Hemoglobin 13.6 g/dL (11.5-15.4); Immature Granulocytes % 0.3 % (0-4); Lymphocytes # 4.3 K/mcL (0.6-4.6); Lymphocytes % 32.5 %; Mean Corpuscular HGB Conc 31.6 g/dL (31.6-35.5); Mean Corpuscular Volume 88.7 fL (83.0-100.0); Mean Platelet Volume 11.3 fL (9.4-12.4); Monocytes # 1.3 K/mcL (0.0-1.3); Monocytes % 9.8 %; Neutrophils # 6.9 K/mcL (1.6-8.9); Platelet Count 322 K/mcL (140-400); Red Blood Count 4.85 M/mcL (3.82-4.97); Red Cell Distribution Width 14.3 % (11.5-14.5); Segmented Neutrophils % 51.4 %; White Blood Count 13.4 K/mcL (4.3-11.1)
[2021-10-07 08:12] LABS: Calcium 9.3 mg/dL (8.6-10.3); Potassium 3.9 mEq/L (3.5-5.1)
[2021-10-07] MEDS: Thiamine (B-1) 100 MG in 0.9 % Sodium Chloride 50 ML IVPB SCH (10:13)
[2021-10-07] MEDS: diazePAM 5 MG TABLET PO PRN (10:13)
[2021-10-07 11:11] VITALS: BP 126/70; PULSE 65; O2SAT 98
[2021-10-07] MEDS ORDERED: DilTIAZem CD (24hr) 120 MG CAP.ER.24H PO SCH (12:45)
[2021-10-09 07:56] LABS: Tissue Transglutaminase IgG 6 U/mL (0-5)
[2021-10-09 07:57] LABS: Tissue Transglutaminase IgA <2 U/mL (0-3)
== END 2021-10-07 15:15 | disposition home or self-care (01) ==
LOC: 3ANU → SUATTDRO 10-04 02:47
PROVIDERS: ADMIT Internal Medicine; ATTEND Student in an Organized Health Care Education/Training Program